=== PATIENT | female | born 1990 | race Caucasian/White ===

== ENCOUNTER 2017-02-26 18:03 | Emergency (ER) | payer OTHER ==
[~2017-02-26] VITALS: Ht 172.7 cm; Wt 108.9 kg
[~2017-02-26 18:03] MED LIST: ACETAMINOPHEN325 M1 PO; ALBUTEROL INHAL17 GM INH; FLOVENT DISKUS50 MCG; FLOVENT HFA 4444 MCG INH; GLUCOSE4 GM; PREDNISONE 10 M10 MG PO; PREDNISONE 5 MG5 M1 PO; RANITIDINE 150150 M1 PO
[2017-02-26 18:21] LABS: URINE BILIRUBIN NEGATIVE (Negative); URINE BLOOD 2+ (Negative); URINE COLOR YELLOW; URINE GLUCOSE-RANDOM* NEGATIVE (Negative); URINE KETONES NEGATIVE (Negative); URINE NITRITE NEGATIVE (Negative); URINE PROTEIN (DIPSTICK) NEGATIVE (Negative); URINE UROBILINOGEN 0.2 E.U./dl (0.2-1.0)
[2017-02-26 18:27] LABS: BACTERIA 1-9 Few /HPF (None Seen); CASTS None Seen /LPF (None Seen); CRYSTALS None Seen /LPF (None Seen); SQUAMOUS 0-3 Few /LPF (0-3); URINE RBC 0-2 Rare /HPF (0-2); URINE WBC 0-5 Rare /HPF (0-5)
[2017-02-26 18:58] LABS: ABSOLUTE NEUTROPHILS 5.5 thou/uL (1.4-8.2); BASOPHILS 0.7 % (0.0-2.0); EOSINOPHILS 1.8 % (0.0-3.0); HEMATOCRIT 39.1 % (37.0-47.0); HEMOGLOBIN 12.9 gm/dL (12.0-15.0); LYMPHOCYTES 24.9 % (24.0-44.0); MCH 28.9 pg (26.0-34.0); MCHC 33.1 g/dL (28.0-37.0); MCV 87.3 fL (80.0-100.0); MONOCYTES 6.9 % (1.0-8.0); PLATELET COUNT 289 thou/uL (150-400); POLYS 65.7 % (36.0-66.0); RBC 4.47 mil/uL (4.20-5.00); RDW 13.2 % (10.5-14.5); WBC 8.4 thou/uL (4.0-11.0)
[2017-02-26 19:00] LABS: MANUAL DIFF NO
[2017-02-26 19:07] LABS: CALCIUM 9.4 mg/dL (8.5-10.1); CREATININE 0.7 mg/dL (0.6-1.0); POTASSIUM 3.6 mmol/L (3.5-5.1)
[2017-02-26] MEDS ORDERED: NORCO 5-325 TA1 EACH PO (19:24)
[2017-02-26 19:33] VITALS: BP 116/82
== END 2017-02-26 19:33 | disposition home or self-care (01) ==
LOC: ER 18:03
PROVIDERS: Emergency Medicine
DX: O20.0 Threatened abortion (principal); J45.909 Unspecified asthma, uncomplicated; K21.9 Gastro-esophageal reflux disease without esophagitis; E28.2 Polycystic ovarian syndrome; Z88.2 Allergy status to sulfonamides; Z3A.28 28 weeks gestation of pregnancy; Z98.890 Other specified postprocedural states; Z88.8 Allergy status to other drugs, medicaments and biological substances

== ENCOUNTER 2021-08-29 22:31 | Emergency (ER) | payer OTHER ==
[~2021-08-29] VITALS: Ht 172.7 cm; Wt 127.0 kg
[~2021-08-29 22:31] MED LIST changes: +NORCO 5-325 TA1 EACH PO
[2021-08-29 22:36] VITALS: BP 176/96
[2021-08-29] MEDS ORDERED: LEVOTHYROXINE100 MCG PO (22:41)
[2021-08-29] MEDS ORDERED: PRENATAL PO (22:42)
[2021-08-29] MEDS ORDERED: IBUPROFEN 800800 MG PO (23:56)
[2021-08-29] MEDS ORDERED: VALIUM2 MG PO (23:56)
== END 2021-08-30 01:25 | disposition home or self-care (01) ==
LOC: ER 22:31
DX: M62.830 Muscle spasm of back (principal); M54.50 Low back pain, unspecified; J44.9 Chronic obstructive pulmonary disease, unspecified; G40.909 Epilepsy, unspecified, not intractable, without status epilepticus; K21.9 Gastro-esophageal reflux disease without esophagitis; Z88.2 Allergy status to sulfonamides; Z88.8 Allergy status to other drugs, medicaments and biological substances; Z79.899 Other long term (current) drug therapy; Z98.890 Other specified postprocedural states